=== PATIENT | female | born 1960 | race Hispanic/Latino ===

== ENCOUNTER 2021-03-09 21:03 | Observation (INO) | payer BC ==
[2021-03-09 21:54] LABS: #Monocytes 0.2 10x3/uL (0.0-1.1); #Neutrophils 7.3 10x3/uL (1.5-8.4); %Basophils 0.2 % (0.0-2.0); %Lymphocytes 10.6 % (18.0-47.0); %Monocytes 2.7 % (0.0-10.0); %Neutrophils 85.9 % (40.0-75.0); Hemoglobin 12.6 g/dL (12.0-15.5); Mean Corpuscular Hemoglobin 26.9 pg (27.0-33.0); Mean Platelet Volume 9.9 fl (7.4-10.4); Platelet Count 359 10x3/uL (150-450); RBC Distribution Width 13.8 % (11.5-14.5); Red Blood Cell (RBC) Count 4.69 10x6/uL (3.90-5.03); White Blood Cell (WBC) Count 8.5 10x3/uL (3.5-10.5)
[2021-03-09 22:05] LABS: ALT (SGPT) 32 U/L (8-55); AST (SGOT) 27 U/L (5-34); Albumin 4.2 g/dL (3.5-5.0); Alkaline Phosphatase 68 U/L (40-110); Anion Gap 14 mmol/L (10-20); BUN (Urea Nitrogen) 12 mg/dL (9.8-20.1); Bilirubin, Total 0.3 mg/dL (0.2-1.2); Calc. Creatinine Clearance 0 mL/min (70-130); Calcium 9.3 mg/dL (7.8-10.44); Carbon Dioxide 26 mmol/L (22-29); Chloride 102 mmol/L (98-107); Globulin 3.3 g/dL (2.4-3.5); Glucose 149 mg/dL (70-105); Protein, Total 7.5 g/dL (6.0-8.3); Sodium 138 mmol/L (136-145)
[2021-03-09 22:16] LABS: Magnesium 1.9 mg/dL (1.6-2.6)
[2021-03-10 01:58] LABS: SARS-CoV-2 NAA Rapid Test Not Detected (NotDetected)
[2021-03-10] MEDS ORDERED: Ondansetron PF 4 MG/2 ML Vial IVP PRN (02:46)
[2021-03-10] MEDS ORDERED: Acetaminophen 325 MG TAB PO PRN (02:46)
[2021-03-10] MEDS ORDERED: Senokot S 8.6-50 MG TAB PO PRN (02:46)
[2021-03-10] MEDS ORDERED: Zolpidem Tartrate 5 MG TAB PO PRN (02:46)
[2021-03-10] MEDS ORDERED: Calcium Carbonate 500 MG ChewTAB PO PRN (02:46)
[2021-03-10] MEDS ORDERED: Guaifenesin DM 100-10/5 ML UDCUP PO PRN (02:46)
[2021-03-10 04:38] LABS: Anion Gap 16 mmol/L (10-20); BUN (Urea Nitrogen) 12 mg/dL (9.8-20.1); Calc. Creatinine Clearance 0 mL/min (70-130); Calcium 9.5 mg/dL (7.8-10.44); Carbon Dioxide 26 mmol/L (22-29); Chloride 102 mmol/L (98-107); Glucose 110 mg/dL (70-105); Potassium 4.3 mmol/L (3.5-5.1); Sodium 140 mmol/L (136-145)
[2021-03-10] MEDS: Levothyroxine Sodium 50 MCG TAB PO SCH (06:12)
[2021-03-10] MEDS: Hydrochlorothiazide 25 MG TAB PO SCH (08:07)
[2021-03-10] MEDS: Lisinopril 20 MG TAB PO SCH (08:07)
[2021-03-10] MEDS: Flecainide 50 MG TAB PO SCH ×2 (08:07→20:22)
[2021-03-10] MEDS: Rivaroxaban 15 MG TAB PO SCH (08:09)
[2021-03-10] MEDS: Magnesium Oxide 400 MG TAB PO SCH (08:09)
[2021-03-10] MEDS: Mometasone 200 MCG/Formoterol 5 MCG 120 PUFF INHALER INH SCH ×2 (08:40→19:20)
[2021-03-10 10:43] LABS: Bilirubin Neg (Negative); Blood, Urine 10 (Negative); Clarity Cloudy (Clear); Glucose, Urine (Dipstick) Normal (Negative); Ketone, Urine Negative (Negative); Leukocyte 25 (Negative); Nitrite Negative (Negative); Protein, Urine (Dipstick) 15 mg/dl (Neg-Trace); Specific Gravity, Urine 1.015 (1.002-1.036); Urobilinogen Normal mg/dL (Less than 2)
[2021-03-10 11:28] LABS: Urine Culture Reflex No No
[2021-03-10 11:42] LABS: Bacteria/HPF 4+ HPF (None Seen); RBC/HPF 0-3 HPF (0-3); Squamous Epithelial 0-3 HPF (0-3)
[2021-03-10] MEDS ORDERED: Acetaminophen 325 MG TAB ONE (15:25)
[2021-03-10] MEDS: Albuterol Sulfate 1.25 MG/3 ML NEB NEB PRN (19:20)
[2021-03-10 19:41] VITALS: BMI 44.7
[2021-03-10] MEDS ORDERED: Albuterol Sulfate 2.5 mg/3 ml Neb ONE (19:51)
[2021-03-10] MEDS ORDERED: Montelukast Sodium 10 mg Tablet PO SCH (21:00)
[2021-03-11] MEDS ORDERED: Zolpidem Tartrate 5 MG TAB ONE (00:49)
[2021-03-11] MEDS: Levothyroxine Sodium 50 MCG TAB PO SCH (05:30)
[2021-03-11] MEDS ORDERED: Albuterol Sulfate 1.25 MG/3 ML NEB ONE ×2 (05:53→15:16)
[2021-03-11] MEDS: Albuterol Sulfate 1.25 MG/3 ML NEB NEB PRN ×2 (06:10→15:16)
[2021-03-11] MEDS: Mometasone 200 MCG/Formoterol 5 MCG 120 PUFF INHALER INH SCH (06:15)
[2021-03-11] MEDS: Flecainide 50 MG TAB PO SCH (09:40)
[2021-03-11] MEDS: Magnesium Oxide 400 MG TAB PO SCH (09:41)
[2021-03-11] MEDS: Lisinopril 20 MG TAB PO SCH (09:41)
[2021-03-11] MEDS: Hydrochlorothiazide 25 MG TAB PO SCH (09:41)
[2021-03-11] MEDS: Rivaroxaban 15 MG TAB PO SCH (09:42)
[2021-03-11 16:18] VITALS: TEMP 98.7
[2021-03-11 16:21] VITALS: BP 152/73
== END 2021-03-11 16:15 | disposition home or self-care (01) ==
LOC: CSHERS 21:03 → CSHERHOLD 03-10 01:57
PROVIDERS: ADMIT Student in an Organized Health Care Education/Training Program; ATTEND Physician Assistant Medical
DX: R00.2 Palpitations (principal); R07.9 Chest pain, unspecified; J45.901 Unspecified asthma with (acute) exacerbation; I48.0 Paroxysmal atrial fibrillation; I25.118 Atherosclerotic heart disease of native coronary artery with other forms of angina pectoris; I10 Essential (primary) hypertension; N39.0 Urinary tract infection, site not specified; B96.1 Klebsiella pneumoniae [K. pneumoniae] as the cause of diseases classified elsewhere; K21.9 Gastro-esophageal reflux disease without esophagitis; E66.01 Morbid (severe) obesity due to excess calories; G47.33 Obstructive sleep apnea (adult) (pediatric); Z79.899 Other long term (current) drug therapy; E89.0 Postprocedural hypothyroidism; Z86.16 Personal history of COVID-19; E55.9 Vitamin D deficiency, unspecified; K76.0 Fatty (change of) liver, not elsewhere classified; Z79.01 Long term (current) use of anticoagulants; Z20.822 Contact with and (suspected) exposure to COVID-19
CPT/HCPCS: 36415; 71045; 80048; 80053; 81001; 83735; 84443; 84484; 85025; 87077; 87086; 87186; 93005; 93306; 94664; 94760; G0378; J7611; J7620; U0002

== ENCOUNTER 2023-04-12 23:45 | Inpatient (IN) | payer BC ==
[2023-04-13 01:43] LABS: Bilirubin Neg (Negative); Blood, Urine 10 (Negative); Glucose, Urine (Dipstick) Normal (Negative); Ketone, Urine Negative (Negative); Leukocyte Negative (Negative); Nitrite Negative (Negative); Protein, Urine (Dipstick) 30 mg/dl (Neg-Trace); Specific Gravity, Urine 1.025 (1.005-1.030); Urobilinogen Normal mg/dL (Less than 2)
[2023-04-13 01:46] LABS: Clarity Hazy (Clear)
[2023-04-13 02:06] LABS: CAUTI Indications for Culture Fever or rigors
[2023-04-13 02:07] LABS: Bacteria/HPF None Seen HPF (None Seen); Urine Culture Reflex No No
[2023-04-13 02:10] LABS: #Monocytes 0.2 10x3/uL (0.0-1.1); #Neutrophils 2.4 10x3/uL (1.5-8.4); %Lymphocytes 19.7 % (18.0-47.0); %Monocytes 6.6 % (0.0-10.0); %Neutrophils 73.4 % (40.0-75.0); Mean Corpuscular HGB CONC 34.2 g/dL (32.0-36.0); Mean Corpuscular Hemoglobin 28.3 pg (27.0-33.0); Mean Corpuscular Volume 82.6 fl (81.6-98.3); Mean Platelet Volume 10.5 fl (7.4-10.4); Platelet Count 249 10x3/uL (150-450); RBC Distribution Width 13.2 % (11.5-14.5); White Blood Cell (WBC) Count 3.2 10x3/uL (3.5-10.5)
[2023-04-13 02:28] LABS: ALT (SGPT) 19 U/L (8-55); AST (SGOT) 84 U/L (5-34); Alkaline Phosphatase 57 U/L (40-110); Anion Gap 14 mmol/L (10-20); BUN (Urea Nitrogen) 18 mg/dL (9.8-20.1); Bilirubin, Total 0.3 mg/dL (0.2-1.2); Calc. Creatinine Clearance 0 mL/min (70-130); Calcium 8.8 mg/dL (7.8-10.44); Carbon Dioxide 23 mmol/L (23-31); Chloride 98 mmol/L (98-107); Estimated GFR 99; Globulin 3.2 g/dL (2.4-3.5); Glucose 107 mg/dL (80-115); Potassium 3.6 mmol/L (3.5-5.1); Protein, Total 7.2 g/dL (5.8-8.1); Sodium 131 mmol/L (136-145)
[2023-04-13 02:32] LABS: SARS-CoV-2 NAA Rapid Test Not Detected (NotDetected)
[2023-04-13 02:38] LABS: Troponin I 19.031 ng/mL (< 0.028)
[2023-04-13 03:58] LABS: Troponin I 20.166 ng/mL (< 0.028)
[2023-04-13] MEDS ORDERED: Aspirin 81 mg Enteric Coated Tablet ONE (06:35)
[2023-04-13] MEDS ORDERED: Nitroglycerin 0.4 MG TAB (25 Tab Bottle) SL PRN (06:49)
[2023-04-13 07:56] VITALS: BMI 36.5
[2023-04-13 08:03] LABS: Cardiac Risk 3.9 (Less than 4.5); Cholesterol 154 mg/dl (< 200 Desired); HDL Cholesterol 39 mg/dL (>60 Neg Risk); LDL Cholesterol, Calculated 96 mg/dL; Triglycerides 93 mg/dL (Less than 150)
[2023-04-13 08:14] LABS: Critical Call Chem Troponin I NUR.AKG2@0809; Troponin I 16.695 ng/mL (< 0.028)
[2023-04-13] MEDS: Sertraline 100 MG TAB PO SCH (08:37)
[2023-04-13] MEDS: Flecainide 50 MG TAB PO SCH (08:37)
[2023-04-13] MEDS: Potassium Chloride 20 MEQ TAB PO SCH (08:38)
[2023-04-13] MEDS: Hydrochlorothiazide 25 MG TAB PO SCH (08:38)
[2023-04-13] MEDS: Carvedilol 6.25 MG TAB PO SCH (08:38)
[2023-04-13] MEDS: Aspirin 325 MG TAB PO SCH (08:38)
[2023-04-13] MEDS: dilTIAZem CD 120 MG CAP PO SCH (08:38)
[2023-04-13] MEDS: Rivaroxaban 15 MG TAB PO SCH (08:39)
[2023-04-13] MEDS: Montelukast Sodium 10 mg Tablet PO SCH (08:39)
[2023-04-13] MEDS: Lisinopril 20 MG TAB PO SCH (08:39)
[2023-04-13] MEDS: Oseltamivir 75 MG CAP PO SCH (08:47)
[2023-04-13] MEDS ORDERED: Non-Formulary Medication 1 EACH (Semaglutide [Rybelsus] 14 MG Tablet) PO SCH (09:00)
[2023-04-13] MEDS: Mometasone 200 MCG/PUFF (1 INHALER) INH SCH (10:50)
[2023-04-13] MEDS ORDERED: Iopamidol 370 76% 100 ML VIAL ONE (10:53)
[2023-04-13] MEDS: Nitroglycerin 2% Ointment 1 INCH/1 GM Packet TOP SCH (11:22)
[2023-04-13] MEDS: Rosuvastatin 10 MG TAB PO SCH (21:28)
[2023-04-13] MEDS: Guaifenesin DM 100-10/5 ML UDCUP PO PRN (22:25)
[2023-04-14] MEDS: Aspirin Chewable 81 MG TAB PO SCH (08:19)
[2023-04-14] MEDS: Albuterol 2.5 MG (3 mL) NEB NEB PRN (08:30)
[2023-04-14 09:40] LABS: #Monocytes 0.5 10x3/uL (0.0-1.1); #Neutrophils 4.1 10x3/uL (1.5-8.4); %Basophils 0.2 % (0.0-2.0); %Eosinophils 0.2 % (0.0-6.0); %Lymphocytes 25.8 % (18.0-47.0); %Neutrophils 65.6 % (40.0-75.0); Hematocrit 37.3 % (34.9-44.5); Hemoglobin 12.4 g/dL (12.0-15.5); Mean Corpuscular HGB CONC 33.2 g/dL (32.0-36.0); Mean Corpuscular Hemoglobin 27.9 pg (27.0-33.0); Mean Platelet Volume 10.1 fl (7.4-10.4); Platelet Count 273 10x3/uL (150-450); RBC Distribution Width 13.4 % (11.5-14.5); Red Blood Cell (RBC) Count 4.44 10x6/uL (3.90-5.03); White Blood Cell (WBC) Count 6.2 10x3/uL (3.5-10.5)
[2023-04-14 09:49] LABS: Anion Gap 15 mmol/L (10-20); BUN (Urea Nitrogen) 24 mg/dL (9.8-20.1); Calc. Creatinine Clearance 104 mL/min (70-130); Calcium 8.9 mg/dL (7.8-10.44); Carbon Dioxide 25 mmol/L (23-31); Chloride 96 mmol/L (98-107); Estimated GFR 89; Glucose 92 mg/dL (80-115); Potassium 3.5 mmol/L (3.5-5.1); Sodium 132 mmol/L (136-145)
[2023-04-14] MEDS: FLU VACC QS2023-24(6MOS UP)/PF 60 MCG/0.5 ML SYRINGE IM ONE (18:56)
[2023-04-15 06:17] LABS: Anion Gap 12 mmol/L (10-20); BUN (Urea Nitrogen) 19 mg/dL (9.8-20.1); Calc. Creatinine Clearance 110 mL/min (70-130); Calcium 8.8 mg/dL (7.8-10.44); Carbon Dioxide 28 mmol/L (23-31); Chloride 97 mmol/L (98-107); Estimated GFR 95; Glucose 85 mg/dL (80-115); Potassium 3.3 mmol/L (3.5-5.1); Sodium 134 mmol/L (136-145)
[2023-04-15 06:30] LABS: #Monocytes 0.5 10x3/uL (0.0-1.1); #Neutrophils 3.3 10x3/uL (1.5-8.4); %Basophils 0.2 % (0.0-2.0); %Eosinophils 0.3 % (0.0-6.0); %Lymphocytes 35.5 % (18.0-47.0); Hematocrit 37.1 % (34.9-44.5); Hemoglobin 12.2 g/dL (12.0-15.5); Mean Corpuscular HGB CONC 32.9 g/dL (32.0-36.0); Mean Corpuscular Hemoglobin 27.6 pg (27.0-33.0); Mean Corpuscular Volume 83.9 fl (81.6-98.3); Mean Platelet Volume 10.5 fl (7.4-10.4); Platelet Count 256 10x3/uL (150-450); RBC Distribution Width 13.4 % (11.5-14.5); Red Blood Cell (RBC) Count 4.42 10x6/uL (3.90-5.03); White Blood Cell (WBC) Count 5.9 10x3/uL (3.5-10.5)
[2023-04-15] MEDS: Potassium Chloride 20 MEQ TAB PO SCH (10:04)
[2023-04-15] MEDS ORDERED: Ipratropium/Albuterol 3 ML NEB NEB PRN (10:38)
[2023-04-15] MEDS: methylPREDNISolone Sod Succ 40 MG VIAL IVP SCH ×2 (12:39→21:24)
[2023-04-15] MEDS: Ipratropium/Albuterol 3 ML NEB NEB SCH (13:45)
[2023-04-16 05:30] LABS: #Monocytes 0.1 10x3/uL (0.0-1.1); #Neutrophils 3.5 10x3/uL (1.5-8.4); %Lymphocytes 12.4 % (18.0-47.0); %Monocytes 1.5 % (0.0-10.0); %Neutrophils 85.9 % (40.0-75.0); Hematocrit 35.7 % (34.9-44.5); Mean Corpuscular HGB CONC 33.6 g/dL (32.0-36.0); Mean Corpuscular Hemoglobin 27.6 pg (27.0-33.0); Mean Corpuscular Volume 82.1 fl (81.6-98.3); Mean Platelet Volume 10.4 fl (7.4-10.4); Platelet Count 280 10x3/uL (150-450); RBC Distribution Width 13.1 % (11.5-14.5); Red Blood Cell (RBC) Count 4.35 10x6/uL (3.90-5.03); White Blood Cell (WBC) Count 4.1 10x3/uL (3.5-10.5)
[2023-04-16 05:38] LABS: Anion Gap 13 mmol/L (10-20); BUN (Urea Nitrogen) 14 mg/dL (9.8-20.1); Calc. Creatinine Clearance 116 mL/min (70-130); Carbon Dioxide 26 mmol/L (23-31); Chloride 98 mmol/L (98-107); Estimated GFR 99; Glucose 135 mg/dL (80-115); Potassium 4.1 mmol/L (3.5-5.1); Sodium 133 mmol/L (136-145)
[2023-04-16] MEDS: Guaifenesin DM 100-10/5 ML UDCUP PO SCH (13:47)
[2023-04-16] MEDS: Rosuvastatin 10 MG TAB PO SCH (20:47)
[2023-04-17] MEDS ORDERED: Nitroglycerin 50 MG/250 ML BOT 0 ML ONE (09:31)
[2023-04-17] MEDS ORDERED: Midazolam HCl 2 mg/2 ml Vial ONE (09:32)
[2023-04-17] MEDS ORDERED: Heparin 10,000 UNITS/ 10 ML VIAL ONE (09:32)
[2023-04-17] MEDS ORDERED: fentaNYL 50 mcg/mL 1 mL Vial ONE (09:32)
[2023-04-17] MEDS ORDERED: Verapamil 5 MG/2 ML VIAL ONE (09:32)
[2023-04-17] MEDS ORDERED: Lidocaine 1% (PF) 30 ML VIAL ONE (09:32)
[2023-04-17] MEDS ORDERED: Adenosine 6 mg (2 mL) VIAL ONE (09:33)
[2023-04-17] MEDS ORDERED: Morphine IR 10 MG/5 ML UDCUP PO PRN (11:03)
[2023-04-17 12:04] VITALS: TEMP 97.8
[2023-04-17] MEDS: Rivaroxaban 15 MG TAB PO SCH (12:52)
[2023-04-17] MEDS: Guaifenesin DM 100-10/5 ML UDCUP PO SCH (12:54)
[2023-04-17] MEDS: methylPREDNISolone Sod Succ 40 MG VIAL IVP SCH (12:54)
[2023-04-17 12:55] VITALS: BP 126/75
[2023-04-17] MEDS ORDERED: guaiFENesin/Dextromethorphan 10 ML UDCUP PO PRN (13:00)
[2023-04-17] MEDS ORDERED: Benzonatate 100 MG CAP PO SCH (15:00)
[2023-04-18] MEDS ORDERED: methylPREDNISolone Sod Succ 40 MG VIAL IVP SCH (09:00)
[2023-04-18] MEDS ORDERED: Rivaroxaban 15 MG TAB PO SCH (09:00)
== END 2023-04-17 16:40 | disposition home or self-care (01) | DRG 281 ==
LOC: CSHERS 23:45 → CSHERHOLD 04-13 05:41 → CSHTELE 04-13 07:28
PROVIDERS: ADMIT Family Medicine; ATTEND Family Medicine
DX: I21.4 Non-ST elevation (NSTEMI) myocardial infarction (principal); I50.32 Chronic diastolic (congestive) heart failure; J45.901 Unspecified asthma with (acute) exacerbation; I48.0 Paroxysmal atrial fibrillation; E66.9 Obesity, unspecified; E03.9 Hypothyroidism, unspecified; J10.1 Influenza due to other identified influenza virus with other respiratory manifestations; I11.0 Hypertensive heart disease with heart failure; E87.6 Hypokalemia; Z79.899 Other long term (current) drug therapy; Z88.8 Allergy status to other drugs, medicaments and biological substances; Z79.51 Long term (current) use of inhaled steroids; Z68.36 Body mass index [BMI] 36.0-36.9, adult; Z79.890 Hormone replacement therapy; Z98.890 Other specified postprocedural states; Z90.49 Acquired absence of other specified parts of digestive tract; Z90.710 Acquired absence of both cervix and uterus; Z83.3 Family history of diabetes mellitus; Z82.49 Family history of ischemic heart disease and other diseases of the circulatory system; Z11.52 Encounter for screening for COVID-19
CPT/HCPCS: 0241U; 36415; 71045; 71275; 80048; 80053; 80061; 81001; 83735; 83880; 84443; 84484; 85025; 93005; 93010; 93306; 94640; 94664; J0153; J1644; J2001; J2250; J2920; J3010; J7611; J7620; Q9967